=== PATIENT | female | born 1985 | race American Indian/Alaskan Native ===

== ENCOUNTER 2017-06-13 01:40 | Emergency (ER) | payer MEDICAID, OTHER ==
[2017-06-13 02:43] LABS: BUN/Creatinine Ratio 10; Basophils # (Auto) 0.1 K/mm3 (0.0-0.1); Basophils % (Auto) 0.3 % (0.0-1.8); Blood Urea Nitrogen 7 mg/dL (7-17); Calcium 8.7 mg/dL (8.4-10.2); Eosinophils % (Auto) 0.3 % (0.0-4.3); Hematocrit 40.9 % (30.3-42.9); Hemoglobin 13.9 gm/dl (10.1-14.3); Hemolysis Index 4; Lymphocytes # (Auto) 2.3 K/mm3 (1.2-5.4); Lymphocytes % (Auto) 13.5 % (13.4-35.0); Mean Corpuscular HGB Conc 34 % (30-34); Mean Corpuscular Hemoglobin 29 pg (28-32); Mean Corpuscular Volume 85 fl (79-97); Monocytes # (Auto) 0.6 K/mm3 (0.0-0.8); Monocytes % (Auto) 3.6 % (0.0-7.3); Platelet Count 285 K/mm3 (140-440); Red Cell Distribution Width 15.9 % (13.2-15.2)
[2017-06-13 02:48] LABS: Amphetamine Screen,Urine PRESUMPTIVE NEGATIVE; Benzodiazepines Screen,Urine PRESUMPTIVE NEGATIVE; Cocaine Screen,Urine PRESUMPTIVE NEGATIVE; Methadone Screen,Urine PRESUMPTIVE NEGATIVE; Opiate Screen,Urine PRESUMPTIVE NEGATIVE
[2017-06-13 03:06] LABS: Cannabinoid Screen,Urine PRESUMPTIVE POSITIVE
[2017-06-13] MEDS ORDERED: NACL 0.9% 1000 ML 1,000 ML IV ONE (04:01)
--- NOTE | 2017-06-13 05:00 | Emergency Department Report ---
ED Psych HPI - General Chief Complaint: Psych Stated Complaint: MH/SUICIDAL THOUGHTS Time Seen by Provider: 06/13/17 03:39 Source: patient, EMS Mode of arrival: Ambulatory Limitations: No Limitations - History of Present Illness Initial Comments: 32 year old female with a past medical history schizophrenia and depression presents to the hospital pending her suicidal ideation and depression. Patient having thoughts of cutting herself. She admits to alcohol intake tonight but denies daily alcohol use. She is calm and cooperative in ED without physical complaints. She is compliant with her Zyprexa but hears the voice of Krystian at times. - Related Data Home Medications Medication Instructions Recorded Confirmed Last Taken Mv-Mins/Folic Acid/Guarana/Caf 1 each PO DAILY 06/13/17 06/13/17 06/13/17 [One Daily Tablet] Allergies Allergy/AdvReac Type Severity Reaction Status Date / Time No Known Allergies Allergy Verified 06/13/17 01:56 ED Review of Systems ROS: Stated complaint: MH/SUICIDAL THOUGHTS Other details as noted in HPI Comment: All other systems reviewed and negative Other: Constitutional: No fevers chills or weight loss Eyes: No eye pain visual changes or discharge ENT: No ear pain or throat pain Neck: Denies pain Respiratory: Denies cough wheezing shortness of breath Cardiovascular: Denies chest pain, palpitations, syncope GI: Denies abdominal pain, nausea, vomiting, diarrhea : Denies dysuria Musculoskeletal: Denies back pain, joint swelling Skin: Denies rash, lesions, erythema Neurologic: Denies headache, numbness, weakness Psychiatric: As per HPI ED Past Medical Hx - Past Medical History Previous Medical History?: Yes Hx Psychiatric Treatment: Yes (Depression) - Surgical History Past Surgical History?: No - Social History Smoking Status: Current Every Day Smoker Substance Use Type: Alcohol - Medications Home Medications: Home Medications Medication Instructions Recorded Confirmed Last Taken Type Mv-Mins/Folic Acid/Guarana/Caf 1 each PO DAILY 06/13/17 06/13/17 06/13/17 History [One Daily Tablet] ED Physical Exam - General Limitations: No Limitations - Other Other exam information: General: No limitations, patient is alert in no acute distress Head exam: Atraumatic, normocephalic Eyes exam: Normal appearance, pupils equal reactive to light, extraocular movements intact ENT: Moist mucous membrane, normal oropharynx Neck exam: Normal inspection, full range of motion, no meningismus nontender Respiratory exam: Clear to auscultation bilateral, no wheezes, rales, crackles Cardiovascular: Normal rate and rhythm, normal heart sounds Abdomen: Soft, nondistended, and nontender, with normal bowel sounds, no rebound, or guarding Extremity: Full range of motion normal inspection no deformity Back: Normal Inspection, full range of motion, no tenderness Neurologic: Alert, oriented x3, cranial nerves intact, no motor or sensory deficit Psychiatric: normal affect, normal mood Skin: Warm, dry, intact ED Course Vital Signs 06/13/17 02:11 Temperature 98.7 F Pulse Rate 93 H Respiratory 18 Rate Blood Pressure 90/60 [Left] O2 Sat by Pulse 97 Oximetry ED Medical Decision Making - Lab Data Result diagrams: 06/13/17 02:12 06/13/17 02:12 Lab Results 06/13/17 06/13/17 06/13/17 Range/Units 02:11 02:12 02:12 WBC (4.5-11.0) K/mm3 RBC (3.65-5.03) M/mm3 Hgb (10.1-14.3) gm/dl Hct (30.3-42.9) % MCV (79-97) fl MCH (28-32) pg MCHC (30-34) % RDW (13.2-15.2) % Plt Count (140-440) K/mm3 Lymph % (Auto) (13.4-35.0) % [place] % (Auto) (0.0-7.3) % Eos % (Auto) (0.0-4.3) % Baso % (Auto) (0.0-1.8) % Lymph # (1.2-5.4) K/mm3 [place] # (0.0-0.8) K/mm3 Eos # (0.0-0.4) K/mm3 Baso # (0.0-0.1) K/mm3 Seg Neutrophils % (40.0-70.0) % Seg Neutrophils # (1.8-7.7) K/mm3 Sodium (137-145) mmol/L Potassium (3.6-5.0) mmol/L Chloride (98-107) mmol/L Carbon Dioxide (22-30) mmol/L Anion Gap mmol/L BUN (7-17) mg/dL Creatinine (0.7-1.2) mg/dL Estimated GFR ml/min BUN/Creatinine Ratio % Glucose (65-100) mg/dL Calcium (8.4-10.2) mg/dL Magnesium (1.7-2.3) mg/dL HCG, Qual (Negative) Salicylates < 0.3 L (2.8-20.0) mg/dL Urine Opiates Screen Presumptive negative Urine Methadone Screen Presumptive negative Acetaminophen < 5.0 L (10.0-30.0) ug/mL Ur Barbiturates Screen Presumptive negative Ur Phencyclidine Scrn Presumptive negative Ur Amphetamines Screen Presumptive negative U Benzodiazepines Scrn Presumptive negative Urine Cocaine Screen Presumptive negative U Marijuana (THC) Screen Presumptive positive Drugs of Abuse Note Disclamer Plasma/Serum Alcohol (0-0.07) % 06/13/17 06/13/17 06/13/17 Range/Units 02:12 02:12 02:12 WBC (4.5-11.0) K/mm3 RBC (3.65-5.03) M/mm3 Hgb (10.1-14.3) gm/dl Hct (30.3-42.9) % MCV (79-97) fl MCH (28-32) pg MCHC (30-34) % RDW (13.2-15.2) % Plt Count (140-440) K/mm3 Lymph % (Auto) (13.4-35.0) % [place] % (Auto) (0.0-7.3) % Eos % (Auto) (0.0-4.3) % Baso % (Auto) (0.0-1.8) % Lymph # (1.2-5.4) K/mm3 [place] # (0.0-0.8) K/mm3 Eos # (0.0-0.4) K/mm3 Baso # (0.0-0.1) K/mm3 Seg Neutrophils % (40.0-70.0) % Seg Neutrophils # (1.8-7.7) K/mm3 Sodium 141 (137-145) mmol/L Potassium 3.8 (3.6-5.0) mmol/L Chloride 103.3 (98-107) mmol/L Carbon Dioxide 23 (22-30) mmol/L Anion Gap 19 mmol/L BUN 7 (7-17) mg/dL Creatinine 0.7 (0.7-1.2) mg/dL Estimated GFR > 60 ml/min BUN/Creatinine Ratio 10 % Glucose 85 (65-100) mg/dL Calcium 8.7 (8.4-10.2) mg/dL Magnesium (1.7-2.3) mg/dL HCG, Qual Negative (Negative) Salicylates (2.8-20.0) mg/dL Urine Opiates Screen Urine Methadone Screen Acetaminophen (10.0-30.0) ug/mL Ur Barbiturates Screen Ur Phencyclidine Scrn Ur Amphetamines Screen U Benzodiazepines Scrn Urine Cocaine Screen U Marijuana (THC) Screen Drugs of Abuse Note Plasma/Serum Alcohol 0.12 H (0-0.07) % 06/13/17 06/13/17 Range/Units 02:12 02:12 WBC 17.3 H (4.5-11.0) K/mm3 RBC 4.80 (3.65-5.03) M/mm3 Hgb 13.9 (10.1-14.3) gm/dl Hct 40.9 (30.3-42.9) % MCV 85 (79-97) fl MCH 29 (28-32) pg MCHC 34 (30-34) % RDW 15.9 H (13.2-15.2) % Plt Count 285 (140-440) K/mm3 Lymph % (Auto) 13.5 (13.4-35.0) % [place] % (Auto) 3.6 (0.0-7.3) % Eos % (Auto) 0.3 (0.0-4.3) % Baso % (Auto) 0.3 (0.0-1.8) % Lymph # 2.3 (1.2-5.4) K/mm3 [place] # 0.6 (0.0-0.8) K/mm3 Eos # 0.0 (0.0-0.4) K/mm3 Baso # 0.1 (0.0-0.1) K/mm3 Seg Neutrophils % 82.3 H (40.0-70.0) % Seg Neutrophils # 14.2 H (1.8-7.7) K/mm3 Sodium (137-145) mmol/L Potassium (3.6-5.0) mmol/L Chloride (98-107) mmol/L Carbon Dioxide (22-30) mmol/L Anion Gap mmol/L BUN (7-17) mg/dL Creatinine (0.7-1.2) mg/dL Estimated GFR ml/min BUN/Creatinine Ratio % Glucose (65-100) mg/dL Calcium (8.4-10.2) mg/dL Magnesium 2.10 (1.7-2.3) mg/dL HCG, Qual (Negative) Salicylates (2.8-20.0) mg/dL Urine Opiates Screen Urine Methadone Screen Acetaminophen (10.0-30.0) ug/mL Ur Barbiturates Screen Ur Phencyclidine Scrn Ur Amphetamines Screen U Benzodiazepines Scrn Urine Cocaine Screen U Marijuana (THC) Screen Drugs of Abuse Note Plasma/Serum Alcohol (0-0.07) % - Medical Decision Making Patient has mild leukocytosis but denies infectious symptoms. Chest x-ray UA unremarkable. The patient is on the low side prolactinoma for patient. 1 L normal saline ordered and repeat pending. Patient is medically clear for psychiatric admission 1013 and transfer form have been signed - Differential Diagnosis suicidal, alcohol abuse Critical Care Time: No Critical care attestation.: If time is entered above; I have spent that time in minutes in the direct care of this critically ill patient, excluding procedure time. ED Disposition Clinical Impression: Suicidal ideation, Alcohol intoxication, Medical clearance for psychiatric admission Disposition: [id number]/TX-65 PSY HOSP/PSY UNIT Is pt being admited?: No Does the pt Need Aspirin: No Condition: Stable Time of Disposition: 06:15
[2017-06-13 05:32] LABS: Bacteria,Urine 1+ /HPF (Negative); Bilirubin,Urine NEG (Negative); Blood,Urine SM (Negative); Color,Urine Yellow (Yellow); Mucus,Urine FEW /HPF; Protein,Urine <15 mg/dL mg/dL (Negative)
--- NOTE | 2017-06-13 05:49 | XRay Report ---
FINAL REPORT EXAM: XR CHEST ROUTINE 2V HISTORY: elevated wbc TECHNIQUE: PA and lateral chest radiographs PRIORS: None. FINDINGS: No mediastinal shift. Cardiac silhouette is not enlarged. No pneumothorax, effusion, or focal pulmonary opacity. No acute skeletal finding. IMPRESSION: No focal pulmonary opacity.
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
[2017-06-13] MEDS ORDERED: ABILIFY PO ONE (23:45)
--- NOTE | 2017-06-14 15:38 | Progress Note ---
Subjective - Reason for Consult Consult date: 06/14/17 Reason for consult: Psychiatry Follow-up - Chief Complaint Chief complaint: "The prophets tells me lots of things" 32 year old female who presents to [facility] for suicidal ideation with plan to cut wrist. Today the patient is calm and cooperative during the assessment. She stated being in a "depressed state mind" for the past 5 yrs because of many stressors. She stated being a prophet and knowing prophets who can change her situation. She would not confirm or deny that she attempted suicide in the past when asked. She is adamant about wanting to be discharged. She denies SI/HI's and AVH's. She denies any side effects of her medication. Mental Status Exam - Vital signs Last Vital Signs Temp 98.8 F 06/13/17 19:45 Pulse 78 06/13/17 19:45 Resp 18 06/13/17 19:45 BP 112/60 06/13/17 19:45 Pulse Ox 100 06/13/17 19:45 - Exam Narrative exam: MSE: Appearance: calm, cooperative Behavior: regular eye contact, hyper scientology Speech: regular rate and tone Mood: "okay" Affect: congruent to mood Thought Process: circumstantial Thought Content: denies SI/HI's and AVH's, delusional Motor Activity: sitting up in bed Cognition: A/O x3 Insight: variable Judgment: variable Assessment and Plan Impression: Unspecified Mood DO with psy features. Alcohol intoxication on admission. Cannabis Use DO. Today the patient is calm and cooperative during the assessment. DDx: R/O Bipolar DO, R/O Substance Induced Mood/Psy DO Recommendation/Plan: Continue 1013 and gather collateral information to help determine proper dispo. Continue Abilify 5 mg PO HS for mood/psychosis. Discussed possible metabolic side effects of Abilify with patient. Discussed generalized coping skills with patient.
[2017-06-14] MEDS ORDERED: GEODON PO ONE ×2 (17:30→20:25)
[2017-06-14] MEDS ORDERED: ABILIFY PO SCH (22:00)
[2017-06-15 13:53] VITALS: BP 92/56
--- NOTE | 2017-06-15 18:00 | Progress Note ---
Subjective - Reason for Consult Consult date: 06/22/17 Reason for consult: psychiatric follow-up - Chief Complaint Chief complaint: "The prophets tells me lots of things" 32 year old female who presents to [facility] for suicidal ideation with plan to cut wrist. Yesterday evening she was agitated about her continued stay in the ED needing Geodon PRN. Today the patient was calm and cooperative during the assessment. She continued to appear in a depressed state, however she continued to minimize her symptoms and was perseverative about being discharged home. She was minimizing the stressors in her life and also minimizing her alcohol use. Denied any homicidal ideations and denied any auditory or visual hallucinations. She denies any side effects of her medication. Mental Status Exam - Vital signs Last Vital Signs Temp 98.5 F 06/15/17 10:00 Pulse 88 06/15/17 10:00 Resp 18 06/15/17 10:00 BP 92/56 06/15/17 10:00 Pulse Ox 100 06/15/17 10:00 - Exam Narrative exam: Narrative exam: MSE: Appearance: calm, cooperative Behavior: regular eye contact, Speech: regular rate and tone Mood: Depressed and irritable Affect: congruent to mood Thought Process: circumstantial Thought Content: denies SI/HI's and AVH's, Motor Activity: sitting up in bed Cognition: A/O x3 Insight: Poor Judgment: Poor Assessment and Plan Impression: Unspecified Mood DO with psy features. Alcohol intoxication on admission. Cannabis Use DO. Today the patient is calm and cooperative during the assessment. Recommendation/Plan: Patient has been accepted at [facility] and will be transferred to that facility for continued psychiatric care. Continue her Abilify 5 mg at bedtime to help with mood and psychosis.
== END 2017-06-15 18:04 ==
LOC: ED 01:40
DX: F32.9 Major depressive disorder, single episode, unspecified (principal); F10.129 Alcohol abuse with intoxication, unspecified; F17.200 Nicotine dependence, unspecified, uncomplicated
CPT/HCPCS: 36415; 71046; 80048; 80307; 81001; 83735; 84703; 85025; 96360; 99285; G0480; J7030; 80320

== ENCOUNTER 2020-07-12 21:45 | Emergency (ER) | payer SELFPAY | END 2020-07-12 23:15 | disposition left against medical advice (07) | LOC: ED 21:45 | DX: Z53.21 Procedure and treatment not carried out due to patient leaving prior to being seen by health care provider (principal) ==

== ENCOUNTER 2020-07-15 09:21 | Observation (INO) | payer OTHER ==
--- NOTE | 2020-07-15 09:35 | Event Note ---
ED Screening Note ED Screening Note: vag bleed 4 w preg This initial assessment/diagnostic orders/clinical plan/treatment(s) is/are subject to change based on patients health status, clinical progression and re- assessment by fellow clinical providers in the ED. Further treatment and workup at subsequent clinical providers discretion. Patient/guardian urged not to elope from the ED as their condition may be serious if not clinically assessed and managed. Initial orders include: ro ectopic/ab
[2020-07-15 10:23] LABS: Basophils % (Auto) 0.2 % (0.0-1.8); Eosinophils % (Auto) 0.3 % (0.0-4.3); Hematocrit 21.5 % (30.3-42.9); Hemoglobin 7.7 gm/dl (10.1-14.3); Lymphocytes # (Auto) 2.3 K/mm3 (1.2-5.4); Lymphocytes % (Auto) 13.5 % (13.4-35.0); Mean Corpuscular HGB Conc 36 % (30-34); Mean Corpuscular Volume 91 fl (79-97); Monocytes % (Auto) 5.9 % (0.0-7.3); Platelet Count 229 K/mm3 (140-440); Red Blood Count 2.36 M/mm3 (3.65-5.03); Red Cell Distribution Width 14.1 % (13.2-15.2)
--- NOTE | 2020-07-15 10:51 | Emergency Department Report ---
ED Female HPI - General Chief complaint: Vaginal Bleeding Stated complaint: ABD PAIN/POSSIBLE MISCARRIAGE Time Seen by Provider: 07/15/20 09:34 Source: patient Mode of arrival: Ambulatory Limitations: No Limitations - History of Present Illness Initial comments: 35 YO AA FEMALE COMES TO ER P WAKING UP HAVING VAG SPOTTING DURING THE NIGHT. MILD CRAMPING. THIS IS 9TH . LMP THE FIRST WEEK OF MAY - SHE STATES. OB IS DR ERAZO AT THE [facility] BUT SHE HAS NOT SEEN HIM THIS ON NO HOME MEDS. MD Complaint: vaginal bleeding -: Sudden, hour(s) Severity: mild Quality: cramping Consistency: intermittent Improves with: none Worsens with: none Are you Now?: Yes Associated Symptoms: denies other symptoms, vaginal bleeding, abdominal pain. denies: vaginal discharge, nausea/vomiting, fever/chills, headaches, loss of appetite, dysuria, hematuria, rash, seizure, shortness of breath, syncope, weakness - Related Data Sexually active: Yes : 9 Para: 7 A: 1 Allergies Allergy/AdvReac Type Severity Reaction Status Date / Time No Known Allergies Allergy Verified 06/13/17 01:56 ED Review of Systems ROS: Stated complaint: ABD PAIN/POSSIBLE MISCARRIAGE Other details as noted in HPI Comment: All other systems reviewed and negative ED Past Medical Hx - Past Medical History Previous Medical History?: Yes Hx Psychiatric Treatment: Yes (Depression) - Surgical History Past Surgical History?: Yes - Family History Family history: no significant - Social History Smoking Status: Current Every Day Smoker Substance Use Type: None ED Physical Exam - General Limitations: No Limitations General appearance: alert, in no apparent distress - Head Head exam: Present: atraumatic, normocephalic - Eye Eye exam: Present: normal appearance - ENT ENT exam: Present: mucous membranes moist - Neck Neck exam: Present: normal inspection - Respiratory Respiratory exam: Present: normal lung sounds bilaterally. Absent: respiratory distress - Cardiovascular Cardiovascular Exam: Present: regular rate, normal rhythm. Absent: systolic murmur, diastolic murmur, rubs, gallop - GI/Abdominal GI/Abdominal exam: Present: soft, tenderness, normal bowel sounds - Extremities Exam Extremities exam: Present: normal inspection - Back Exam Back exam: Present: normal inspection - Neurological Exam Neurological exam: Present: alert, oriented X3 - Psychiatric Psychiatric exam: Present: normal affect, normal mood - Skin Skin exam: Present: warm, dry, intact, normal color. Absent: rash ED Course Vital Signs 07/15/20 07/15/20 07/15/20 09:31 13:13 13:16 Temperature 98.0 F 98.6 F Pulse Rate 104 H 86 Respiratory 16 18 16 Rate Blood Pressure 99/53 Blood Pressure 101/46 [Right] O2 Sat by Pulse 99 100 100 Oximetry - Reevaluation(s) Reevaluation #1: 07/15/20 13:07 dispo per obgyn Reevaluation #2: 07/15/20 13:26 to OR per obgyn ED Medical Decision Making - Lab Data Result diagrams: 07/15/20 09:52 - Radiology Data Radiology results: report reviewed, image reviewed SEE IMAGES - Medical Decision Making Labs 07/15/20 07/15/20 07/15/20 09:52 09:52 09:52 WBC 17.1 H RBC 2.36 L Hgb 7.7 L Hct 21.5 L MCV 91 MCH 33 H MCHC 36 H RDW 14.1 Plt Count 229 Lymph % (Auto) 13.5 Adams % (Auto) 5.9 Eos % (Auto) 0.3 Baso % (Auto) 0.2 Lymph # (Auto) 2.3 Adams # (Auto) 1.0 H Eos # (Auto) 0.0 Baso # (Auto) 0.0 Seg Neutrophils % 80.1 H Seg Neutrophils # 13.7 H HCG, Quant 33985 H Blood Type B POSITIVE Ord Rhogam Gestat Weeks Rh pos Vital Signs 07/15/20 09:31 Temperature 98.0 F Pulse Rate 104 H Respiratory 16 Rate Blood Pressure 99/53 O2 Sat by Pulse 99 Oximetry LABS NOTED RH POS US DISCUSSED WITH DR FAROOQ PT NPO PT AWARE OF FINDINGS OBGYN PAGED [phone] UA OBTAINED AND SET TO LAB NS/ROCEPHIN IV GIVEN DILAUDID FOR PAIN PRN 1300 obgyn has seen pt. dispo per obgyn/specialist - Differential Diagnosis RO AB/RO ECTOPIC/ RO UTI Critical care attestation.: If time is entered above; I have spent that time in minutes in the direct care of this critically ill patient, excluding procedure time. ED Disposition Clinical Impression: Ectopic Disposition: OP ADMIT IP TO THIS HOSP Is pt being admited?: Yes Does the pt Need Aspirin: No Condition: Stable Referrals: PRIMARY CARE, [Primary Care Provider] - 3-5 Days Time of Disposition: 13:08
[2020-07-15] MEDS ORDERED: cefTRIAXone/NS 1 GM/50 ML 1 GM/50 ML BAG IV ONE (11:19)
[2020-07-15] MEDS ORDERED: SODIUM CHLORIDE 0.9% 1000 ML 1,000 ML IV ONE (11:19)
[2020-07-15] MEDS ORDERED: HYDROmorphone 1 MG/1 ML INJ IV PRN ×2 (12:16→14:08)
--- NOTE | 2020-07-15 12:30 | Ultrasound Report ---
ULTRASOUND OBSTETRIC INDICATION: with vaginal bleeding. TECHNIQUE: Transabdominal. COMPARISON: None available. FINDINGS: GESTATIONAL SAC: A well-defined gestational sac is seen along the right adnexal region. YOLK SAC: No significant abnormality. EMBRYO/FETUS: Present without visualization of cardiac activity. - [place]-Rump Length = 0.7 cm = 6 weeks, 4 day(s). ADNEXA: As above. No significant abnormality of the ovaries. FREE FLUID: A moderate amount of free fluid is seen along the pelvis and in the right upper quadrant. ADDITIONAL FINDINGS: None. IMPRESSION: Ectopic right adnexal without identification of cardiac activity and with evidence of rupture with a moderate amount of free fluid present. CRITICAL RESULT: Time of Discovery (COLORED LEATHER SETTER/CDT): 11:05 Time of Communication (COLORED LEATHER SETTER/CDT): 11:09 Licensed Practitioner Receiving Report: Kayla Llamas Read-Back Performed: Yes. Signer Name: Hakan Martinez MD Signed: 07/15/2020 12:11 PM Workstation Name: [id number]
[2020-07-15 12:34] LABS: Bilirubin,Urine NEG (Negative); Blood,Urine LG (Negative); Color,Urine Yellow (Yellow); Mucus,Urine FEW /HPF; Urobilinogen,Urine < 2.0 mg/dL (<2.0)
[2020-07-15] MEDS ORDERED: HYDROmorphone 1 MG/1 ML INJ ONE (13:28)
[2020-07-15] MEDS ORDERED: propofoL 200 MG/20 ML VIAL IV ONE (13:28)
--- NOTE | 2020-07-15 13:28 | History and Physical Report ---
History of Present Illness Date of examination: 07/15/20 Chief complaint: Ectopic History of present illness: This is a 35 yof who presents with pelvic pain and bleeding that started 07/12/20. She had a +UPT ~2weeks ago but has not recv'd care. Her evaluation today reveals ectopic with ? blood in pelvis. Past History Past Medical History: no pertinent history Past Surgical History: no surgical history [employer] History: chlamydia, gonorrhea, trichomonas. denies: abnormal PAP smear, hepatitis B, hepatitis C, HIV, syphilis - Obstetrical History : 9 Para: 7 Spontaneous Abortions: 1 Medications and Allergies Allergies Allergy/AdvReac Type Severity Reaction Status Date / Time No Known Allergies Allergy Verified 06/13/17 01:56 Active Meds: Active Medications Hydromorphone HCl (Hydromorphone 1 Mg/1 Ml Inj) 0.25 mg IV Q4H PRN PRN Reason: Pain, Moderate (4-6) Cefazolin Sodium (Ancef/Sterile Water 2 Gm/20 Ml) 2 gm in 20 mls @ 80 mls/hr IV PREOP NR; Protocol Review of Systems All systems: negative Gastrointestinal: abdominal pain Genitourinary: pelvic pain - Vital Signs Vital signs: Vital Signs Temp Pulse Resp BP Pulse Ox 98.0 F 104 H 16 99/53 99 07/15/20 09:31 07/15/20 09:31 07/15/20 09:31 07/15/20 09:31 07/15/20 09:31 Temp Pulse Resp BP Pulse Ox 98.6 F 86 16 101/46 100 07/15/20 13:16 07/15/20 13:16 07/15/20 13:16 07/15/20 13:16 07/15/20 13:16 - Physical Exam Breasts: Positive: deferred Abdomen: Positive: tenderness (RLQ) Results Result Diagrams: 07/15/20 09:52 Abnormal lab results 07/15/20 07/15/20 Range/Units 09:52 09:52 WBC 17.1 H (4.5-11.0) K/mm3 RBC 2.36 L (3.65-5.03) M/mm3 Hgb 7.7 L (10.1-14.3) gm/dl Hct 21.5 L (30.3-42.9) % MCH 33 H (28-32) pg MCHC 36 H (30-34) % Haywood # (Auto) 1.0 H (0.0-0.8) K/mm3 Seg Neutrophils % 80.1 H (40.0-70.0) % Seg Neutrophils # 13.7 H (1.8-7.7) K/mm3 HCG, Quant 52490 H (0-4) mIU/mL All other labs normal. Ultrasound: report reviewed, image reviewed Assessment and Plan - Patient Problems (1) Ectopic Current Visit: Yes Status: Acute Qualifiers: Location of ectopic : tubal Plan to address problem: Findings and presumptive diagnosis explained. Options reviewed: observation vs surgical intervention with removal of fallopian tube w/ or w/o D&C. Recommend proceeding with surgical intervention at this time d/t significant risk of poor outcome and with observation. Risk with surgery explained, including but not limited to, bleeding, infection, injury to bowel, bladder, ureters and any surrounding organs. She is not a candidate for medical therapy d/t findings on US suggestive of moderate blood in the pelvis. She voiced understanding, she desires to proceed with surgical intervention. Consents were reviewed and signed.
[2020-07-15] MEDS ORDERED: ROCURONIUM 50 MG/5 ML INJ IV ONE (13:30)
[2020-07-15] MEDS ORDERED: SUCCINYLCHOLINE CHLORIDE 200 MG/10 ML INJ MDV ONE (13:30)
[2020-07-15] MEDS ORDERED: LIDOCAINE MPF (2%) 20 MG/1 ML VIAL 5 ML ONE (13:31)
[2020-07-15] MEDS ORDERED: BUPIVACAINE/PF (0.5%) 5 MG/1 ML 30 ML VIAL INFILTRATI ONE ×2 (13:41→14:42)
[2020-07-15] MEDS ORDERED: MIDAZOLAM 2 MG/2 ML INJ ONE (13:46)
[2020-07-15] MEDS ORDERED: ceFAZolin/Water 2 GM/20 ML 2 GM/20 ML SYRINGE IV NR (14:00)
[2020-07-15] MEDS ORDERED: ONDANSETRON 4 MG/2 ML INJ IV PRN ×2 (14:08→16:00)
--- NOTE | 2020-07-15 14:10 | Anesthesia Consultation ---
Anesthesia Consult and Med Hx Date of service: 07/15/20 - Airway Anesthetic Teeth Evaluation: Poor (no loose teeth but patient reports prior hx tooth decay) ROM Head & Neck: Adequate Mental/Hyoid Distance: Adequate Mallampati Class: Class II Intubation Access Assessment: Probably Good - Pulmonary Exam CTA: Yes - Cardiac Exam Cardiac Exam: RRR - Pre-Operative Health Status ASA Pre-Surgery Classification: ASA2, Emergency Proposed Anesthetic Plan: General - Pulmonary Hx Smoking: Yes (1/4PPD) Hx Respiratory Symptoms: No - Cardiovascular System Hx Hypertension: No - Central Nervous System CVA: No - Endocrine Hx Renal Disease: No Hx Liver Disease: No Hx Insulin Dependent Diabetes: No Hx Non-Insulin Dependent Diabetes: No Hx Thyroid Disease: No - Hematic Hx Anemia: Yes - Other Systems Hx Substance Use: Yes (THC) Hx Obesity: No - Additional Comments Anesthesia Medical History Comments: No prior anesthetics. No FHx anesthetic complications. Scheduled for laparoscopy for extopic . HD stable, starting Hb 7.7; pRBCs ordered on stand by. Plan GETA, standard ASA monitors.
--- NOTE | 2020-07-15 14:10 | Anesthesia Day of Surgery ---
Anesthesia Day of Surgery - Day of Surgery Patient Examined: Yes Patient H&P Reviewed: Yes Patient is NPO: Yes
[2020-07-15] MEDS ORDERED: NEOSTIGMINE 10MG/10 ML INJ MDV ONE (14:47)
[2020-07-15] MEDS ORDERED: PHENYLEPHRINE/NS 1,000 MCG/10 ML SYRINGE (OR USE) IV ONE (14:47)
[2020-07-15] MEDS ORDERED: SODIUM CHLORIDE 0.9% IRR 1,500 ML BOTTLE IR ONE (14:48)
[2020-07-15] MEDS ORDERED: ONDANSETRON 4 MG/2 ML INJ ONE (14:48)
[2020-07-15] MEDS ORDERED: GLYCOPYRROLATE 0.4 MG/2 ML INJ ONE (14:48)
[2020-07-15] MEDS ORDERED: SODIUM CHLORIDE 0.9% 1000 ML 1,000 ML ONE (14:48)
[2020-07-15] MEDS ORDERED: KETOROLAC 30 MG/1 ML INJ ONE (14:48)
[2020-07-15] MEDS ORDERED: SODIUM CHLORIDE 0.9% 500 ML 500 ML ONE (15:24)
--- NOTE | 2020-07-15 15:38 | Operative Report ---
Operative Report Operative Report: Date of operation: 07/14/2020 Pre-operative diagnosis: 1. Ectopic tubal Post-operative diagnosis: 1. Ectopic right tubal Procedure name(s): 1. Laparoscopic right salpingectomy Surgeon: Roxi Razo MD Clay Miller: [] Anesthesia: General endotracheal anesthesia Anesthesiologist: Dr. Liz Coffman EBL: 1200 mL in the abdomen and pelvis at the beginning of the procedure with active bleeding noted from the right ruptured fallopian tube. Urine output: 150 mL of clear yellow urine Findings: Grossly normal uterus left fallopian tube and bilateral ovaries. Ruptured right fallopian tube. Procedure: After risks, benefits, complications, consequences and alternatives for this procedure were discussed with patient and she voiced understanding desire to proceed, the patient was taken to the operating suite and placed in the supine position. General anesthesia was induced. She placed in dorsolithotomy position and prepped and draped in the usual sterile fashion. Timeout was performed. Trinidad catheter was introduced into the bladder with drainage of clear yellow urine. An operative speculum was introduced into the vagina, and the anterior lip of the cervix was grasped with an Allis clamp. The uterus was sounded to 8 cm. The cervix was progressively dilated to allow the Sargis uterine manipulator to be placed without difficulty. The speculum and clamp were removed. Sterile gloves were placed and attention was turned to the abdomen. An supraumbilical incision was made and a 5 mm bladeless Optiview trocar was placed with laparoscope and camera inserted. No obvious bowel, bladder, ureteral or major vascular injury was noted. The abdomen was insufflated. The above findings were noted. She was then placed in Trendelenburg position. Then an incision was made approximately 2 cm superior to the symphysis pubis in the midline. An 10 mm bladeless trocar was introduced under the direct visualization. Again no obvious bowel, bladder, ureteral or major vascular injury was noted. An additional 5 mm trocar was placed in the midclavicular lower abdominal region through an incision under direct visualization. The uterus was elevated, and using the 10 mm Nezhat device the blood was aspirated. A large clot was noted to be adhered to the right tube that was removed. The ruptured right fallopian tube with ectopic was visualized. Using a 5 mm curved [place] LigaSure tube was grasped and elevated, cauterized and incised. The remainder of the mesosalpinx of the tube was grasped clamped and cauterized in a serial fashion. Once the tube was completely excised it was placed in the anterior cul-de-sac. The pelvis was copiously irrigated with warm normal saline. Attention was turned to the right adnexa where hemostasis was noted. The pelvis was again irrigated with normal saline as mentioned hemostasis was noted. The patient is taken out of Trendelenburg and the remaining of the blood and fluid was aspirated. The Endo Catch bag was then inserted through the 10 mm trocar and the tube with ectopic was introduced into the bag and removed through the suprapubic incision. Attention was turned back to the adnexa when hemostasis was noted. The CO2 was released under direct visualization to ensure hemostasis. Hemostasis was noted. At which point the procedure was ended. The 10 mm trochar removed under direct visualization hemostasis was noted. Then the right lateral 5 mm trocar was removed hemostasis was noted. The 5 mm supraumbilical trocar was removed. The incisions were infused with half percent Marcaine without epinephrine. The incisions were reapproximated using 4-0 Vicryl in a subcuticular manner. Hemostasis was noted. Attention was turned to the vagina where the Sargis uterine manipulator was removed. Hemostasis was noted. Patient was taken to recovery room in stable condition.
--- NOTE | 2020-07-15 15:39 | Event Note ---
Date: 07/15/20 Operative findings and procedure discussed with patient in PACU. Due to the the amount of blood in her abdomen we will proceed with transfusion of 2 units packed red blood cells and admit overnight for observation. Patient informed of plan of care she voiced understanding and agrees.
[2020-07-15 15:48] LABS: Hemoglobin 6.3 gm/dl (10.1-14.3)
[2020-07-15 15:55] LABS: Hematocrit 18.2 % (30.3-42.9)
[2020-07-15] MEDS ORDERED: ONDANSETRON 4 MG ODT TAB PO PRN (16:00)
[2020-07-15] MEDS ORDERED: METOCLOPRAMIDE 10 MG/2 ML INJ IV PRN (16:00)
[2020-07-15] MEDS ORDERED: ACETAMINOPHEN 325 MG TAB PO PRN (16:00)
[2020-07-15] MEDS ORDERED: KETOROLAC 30 MG/1 ML INJ IV PRN (16:00)
--- NOTE | 2020-07-15 18:41 | Post Anesthesia Evaluation ---
- Post Anesthesia Evaluation Patient Participated: Yes Airway Patent: Yes Stable Respiratory Function: Yes Nausea/Vomiting: No Temp > 96.8F: Yes Pain Manageable: Yes Adequeate Hydration: Yes Anesthesia Complications: No Block Receding Appropriately: Not Applicable Other Comments: Asymptomatic hypotension on arrival to PACU which improved after transfusion of 2 units pRBCs. OK for transfer to floor. Post-transfusion H/H ordered.
--- NOTE | 2020-07-15 20:29 | Discharge Summary ---
Providers - Providers Date of Admission: 07/15/20 16:00 Date of discharge: 07/15/20 Attending physician: GEOVANNA BOTELLO Primary care physician: REJOINER Hospitalization Condition: Good Procedures: Laparoscopic (L) salpingectomy Hospital course: See history and physical. Patient underwent left salpingectomy without any complications. Postoperative course was unremarkable. Disposition: DC- TO HOME OR SELFCARE Final Discharge Diagnosis (Prints w/discharge instructions): Laparoscopic left salpingectomy for ectopic - Discharge Diagnoses (1) Ectopic Status: Acute Qualifiers: Location of ectopic : tubal Core Measure Documentation - Palliative Care Palliative Care/ Comfort Measures: Not Applicable - Core Measures Any of the following diagnoses?: none Exam - Constitutional Vitals: Temp Pulse Resp BP Pulse Ox 97.7 F 85 15 103/40 97 07/15/20 17:38 07/15/20 17:38 07/15/20 17:38 07/15/20 17:38 07/15/20 17:38 General appearance: Present: no acute distress - Respiratory Respiratory effort: normal - Psychiatric Psychiatric: appropriate mood/affect, intact judgment & insight, memory intact, cooperative Plan Activity: other (No sex. No driving for 48 hours. Ambulate on your property frequently. Void frequently.) Weight Bearing Status: Full Weight Bearing Diet: regular (Avoid spicy, high-fat, high salt foods. Drink approximately 64 ounces of water a day.) Wound: open to air, keep clean and dry Special Instructions: no heavy lifting (Greater than 15 pound) Follow up with: PRIMARY MD DAVID [Primary Care Provider] - 3-5 Days GEOVANNA BOTELLO MD [Staff Physician] - 7 Days Prescriptions: Ibuprofen [Motrin 800 MG tab] 800 mg PO TID PRN #30 tablet PRN Reason: Pain oxyCODONE /ACETAMINOPHEN [Percocet 5/325 mg] 1 - 2 tab PO Q6HR PRN #7 tablet PRN Reason: Pain
[2020-07-15 21:04] LABS: Hematocrit 27.5 % (30.3-42.9); Hemoglobin 9.6 gm/dl (10.1-14.3)
[2020-07-16] MEDS: oxyCODONE /ACETAMINOPHEN 5-325MG TAB PO PRN ×2 (01:51→13:07)
[2020-07-16] MEDS: IBUPROFEN 800 MG TAB PO SCH ×3 (05:37→13:06)
[2020-07-16 09:13] VITALS: BP 102/50
--- NOTE | 2020-07-16 15:02 | Discharge Summary ---
Providers - Providers Date of Admission: 07/15/20 16:00 Date of discharge: 07/16/20 Attending physician: GEOVANNA BOTELLO Primary care physician: COIL WINDER REPAIR Hospitalization Condition: Good Procedures: Laparoscopic Right salpingectomy for ectopic Hospital course: She was evaluated for abdominal pain and was noted to have tubal ectopic . She had severe anemia and low BP's. She was taken to the OR immediately for laparoscopic evaluation and was found to have a right tubal . She underwent a laparoscopy right salpingectomy. She had ~1200mL bld in the abdomen. In PACU BP's were slightly lower therefore she received 2uPRBC's and was admitted for observation. Postop course has been unremarkable, she's allow home at this time Disposition: DC- TO HOME OR SELFCARE Final Discharge Diagnosis (Prints w/discharge instructions): s/p laparoscopic right salpingectomy - Discharge Diagnoses (1) Ectopic Status: Acute Qualifiers: Location of ectopic : tubal Core Measure Documentation - Palliative Care Palliative Care/ Comfort Measures: Not Applicable - Core Measures Any of the following diagnoses?: none Exam - Constitutional Vitals: Temp Pulse Resp BP Pulse Ox 97.8 F 83 18 102/50 97 07/16/20 08:33 07/16/20 08:33 07/16/20 08:33 07/16/20 08:33 07/16/20 08:33 Plan Activity: other (no sex, No driving x48 ours, ambulate ~1mile on your property a day. Void frequently) Weight Bearing Status: Full Weight Bearing Diet: regular Wound: open to air, keep clean and dry Special Instructions: no heavy lifting (Greater than 15Lbs) Follow up with: GEOVANNA BOTELLO MD [Staff Physician] - 7 Days PRIMARY CAREMD [Primary Care Provider] - 3-5 Days Prescriptions: Ibuprofen [Motrin 800 MG tab] 800 mg PO TID PRN #30 tablet PRN Reason: Pain oxyCODONE /ACETAMINOPHEN [Percocet 5/325 mg] 1 - 2 tab PO Q6HR PRN #7 tablet PRN Reason: Pain
== END 2020-07-16 16:52 | disposition home or self-care (01) ==
LOC: ED 09:21 → OB 16:00
PROVIDERS: ADMIT Obstetrics & Gynecology; ATTEND Obstetrics & Gynecology
DX: O00.101 Right tubal pregnancy without intrauterine pregnancy (principal); Z20.822 Contact with and (suspected) exposure to COVID-19; O99.341 Other mental disorders complicating pregnancy, first trimester; F32.9 Major depressive disorder, single episode, unspecified; O99.331 Smoking (tobacco) complicating pregnancy, first trimester; F17.210 Nicotine dependence, cigarettes, uncomplicated; Z90.79 Acquired absence of other genital organ(s); Z86.19 Personal history of other infectious and parasitic diseases; Z3A.01 Less than 8 weeks gestation of pregnancy
CPT/HCPCS: 36415; 36430; 59151; 76801; 81001; 84702; 85014; 85018; 85025; 86850; 86900; 86901; 86920; 88305; 96365; 96375; 99284; G0378; J0330; J0696; J1170; J1885; J2250; J2370; J2405; J2704; J2710; J7030; J7040; P9016; U0003

== ENCOUNTER 2021-01-07 05:46 | Emergency (ER) | payer SELFPAY ==
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
[2021-01-07 08:14] LABS: Amphetamine Screen,Urine Negative; Benzodiazepines Screen,Urine Negative; Cocaine Screen,Urine Negative; Methadone Screen,Urine Negative; Opiate Screen,Urine Negative
[2021-01-07 08:16] LABS: Basophils % (Auto) 0.3 % (0.0-1.8); Eosinophils % (Auto) 0.1 % (0.0-4.3); Lymphocytes # (Auto) 2.2 K/mm3 (1.2-5.4); Lymphocytes % (Auto) 14.4 % (13.4-35.0); Mean Corpuscular HGB Conc 36 % (30-34); Mean Corpuscular Volume 83 fl (79-97); Monocytes # (Auto) 0.9 K/mm3 (0.0-0.8); Monocytes % (Auto) 5.9 % (0.0-7.3); Platelet Count 339 K/mm3 (140-440); Red Blood Count 5.19 M/mm3 (3.65-5.03)
[2021-01-07 08:21] LABS: Bilirubin,Urine SM (Negative); Blood,Urine NEG (Negative); Color,Urine Amber (Yellow); Mucus,Urine FEW /HPF
[2021-01-07 08:27] LABS: Cannabinoid Screen,Urine Positive
[2021-01-07 08:36] LABS: Hemoglobin 15.6 gm/dl (10.1-14.3); Red Cell Distribution Width 23.2 % (13.2-15.2)
[2021-01-07 08:38] LABS: Blood Urea Nitrogen 5 mg/dL (7-17); Calcium 9.7 mg/dL (8.4-10.2); Hemolysis Index 7
[2021-01-07 08:42] LABS: BUN/Creatinine Ratio 7
[2021-01-07 08:49] LABS: Ictotest,Urine Negative (Negative)
--- NOTE | 2021-01-07 09:32 | Electrocardiograph Report ---
[facility] Test Date: 2021-01-07 Test Time: 06:25:31 Pat Name: IRIS HORNE Department: Room: Gender: F [employer] Carpenter: as : 1985 Requested By: JENNIFER MACIEL Order Number: [id number] Reading MD: Todd Corona Measurements Intervals [place] Rate: 95 P: 73 [place]: 131 QRS: 91 QRSD: 77 T: 59 QT: 363 QTc: 457 Interpretive Statements Sinus rhythm Probable left atrial enlargement No previous ECG available for comparison Electronically Signed On 01-07-2021 9:31:36 EDT by Todd Corona
--- NOTE | 2021-01-07 11:21 | Consultation ---
History of Present Illness - Reason for Consult Consult date: 01/07/21 Reason for consult: SI - History of Present Psychiatric Illness Rose Mary Sanchez is a 35y/o female patient who states she was having chest pain. She then says she told them she was having suicidal thoughts. The patient says "I start feeling like this when I get stressed." She says she "took some pills the other day." She says she was diagnoses with depression and PTSD. The patient is crying a little. She says she hasn't seen a psychiatrist or been on meds in about 4 years. She denies hallucinations. The patient tells me that she doesn't think she should be placed in an inpatient facility. She says "it's all just due to stress." She denies any illicit drug use, alcohol or nicotine. PAST PSYCHIATRIC HISTORY: Diagnoses: depression, PTAD Suicide attempts or Self-harm behavior: Yes Prior psychiatric hospitalizations: Denies Substance Abuse history: Denies Previous psychiatric medications tried: Denies Outpatient treatment: Denies PAST MEDICAL HISTORY: None reported Family Psychiatric History: None reported or documented SOCIAL HISTORY Marital Status: Single Living Arrangements: with someone Employment Status: unemployed Access to guns/weapons: Denies Education: History of Abuse: Denies Legal History: Denies REVIEW OF SYSTEMS Constitutional: Negative for weight loss ENT: Negative for stridor Respiratory: Negative for cough or hemoptysis All other systems reviewed and are negative MENTAL STATUS EXAMINATION General Appearance and Behavior: Age appropriate, good hygiene, wearing appropriate clothes, cooperative polite with questioning. Cooperation: cooperative Psychomotor Behavior: Psychomotor agitation Mood: depressed Affect and affective range: Congruent with stated mood, tearful Thought Process: goal directed Thought Content: SI, depression Speech: normal tone and pace Suicidal Ideation: Yes Homicidal Ideation: Denied hallucination: Denies Delusions: None elicited Impulse Control: Normal Insight and Judgment: Limited Memory: Limited Attention: attentive Orientation: Alert and oriented Diagnoses: Major Depressive Disorder Current Visit: Yes Status: Acute RECOMMENDATIONS 1013 Zoloft 25mg po daily Vistaril 25mg po BID Trazodone 50mg po qhs Risks, benefits and alternatives of medications discussed with the patient, questions answered and consent obtained from patient. PSYCHOTHERAPY: Supportive psychotherapy provided MEDICAL: Per primary team DELIRIUM PRECAUTIONS: Please re-orient patient frequently, keep lights on during the day, and minimize benzodiazepines and opiates as these medications could worsen patient's confusion. 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 Please contact with any questions and/or concerns. Case staffed with Dr. Escamilla Medications and Allergies Allergies Allergy/AdvReac Type Severity Reaction Status Date / Time No Known Allergies Allergy Verified 06/13/17 01:56 Home Medications Medication Instructions Recorded Confirmed Last Taken Type Ibuprofen [Motrin 800 MG tab] 800 mg PO TID PRN #30 tablet 07/15/20 Unknown Rx oxyCODONE /ACETAMINOPHEN [Percocet 1 - 2 tab PO Q6HR PRN #7 tablet 07/15/20 Unknown Rx 5/325 mg] Mental Status Exam - Vital signs Last Vital Signs Temp 98.1 F 01/07/21 06:11 Pulse 96 H 01/07/21 06:11 Resp 20 01/07/21 06:11 BP 96/61 01/07/21 06:11 Pulse Ox 100 01/07/21 08:10 Results Result Diagrams: 01/07/21 07:34 01/07/21 07:34 Abnormal lab results 01/07/21 01/07/21 01/07/21 Range/Units 07:34 07:34 07:34 WBC 15.1 H (4.5-11.0) K/mm3 RBC 5.19 H (3.65-5.03) M/mm3 Hgb 15.6 H (10.1-14.3) gm/dl Hct 43.0 H (30.3-42.9) % MCHC 36 H (30-34) % RDW 23.2 H (13.2-15.2) % [place] # (Auto) 0.9 H (0.0-0.8) K/mm3 Seg Neutrophils % 79.3 H (40.0-70.0) % Seg Neutrophils # 12.0 H (1.8-7.7) K/mm3 D-Dimer (0-234) ng/mlDDU Carbon Dioxide 18 L (22-30) mmol/L BUN 5 L (7-17) mg/dL HCG, Quant (0-4) mIU/mL Urine WBC (Auto) (0.0-6.0) /HPF Salicylates < 0.3 L (2.8-20.0) mg/dL Acetaminophen (10.0-30.0) ug/mL 01/07/21 01/07/21 01/07/21 Range/Units 07:34 07:34 07:42 WBC (4.5-11.0) K/mm3 RBC (3.65-5.03) M/mm3 Hgb (10.1-14.3) gm/dl Hct (30.3-42.9) % MCHC (30-34) % RDW (13.2-15.2) % [place] # (Auto) (0.0-0.8) K/mm3 Seg Neutrophils % (40.0-70.0) % Seg Neutrophils # (1.8-7.7) K/mm3 D-Dimer 792.99 H (0-234) ng/mlDDU Carbon Dioxide (22-30) mmol/L BUN (7-17) mg/dL HCG, Quant 298.0 H (0-4) mIU/mL Urine WBC (Auto) (0.0-6.0) /HPF Salicylates (2.8-20.0) mg/dL Acetaminophen 5.0 L (10.0-30.0) ug/mL 01/07/21 Range/Units Unknown WBC (4.5-11.0) K/mm3 RBC (3.65-5.03) M/mm3 Hgb (10.1-14.3) gm/dl Hct (30.3-42.9) % MCHC (30-34) % RDW (13.2-15.2) % [place] # (Auto) (0.0-0.8) K/mm3 Seg Neutrophils % (40.0-70.0) % Seg Neutrophils # (1.8-7.7) K/mm3 D-Dimer (0-234) ng/mlDDU Carbon Dioxide (22-30) mmol/L BUN (7-17) mg/dL HCG, Quant (0-4) mIU/mL Urine WBC (Auto) 12.0 H (0.0-6.0) /HPF Salicylates (2.8-20.0) mg/dL Acetaminophen (10.0-30.0) ug/mL All other labs normal.
--- NOTE | 2021-01-07 12:59 | Nuclear Medicine Report ---
Perfusion Scan HISTORY: chest pain. TECHNIQUE: Patient was given 2.5 mCi of technetium MAA. COMPARISON: None FINDINGS: No photopenic defect identified. IMPRESSION: Unremarkable exam. Signer Name: Yair Johnson MD Signed: 01/07/2021 12:55 PM Workstation Name: [id number]
--- NOTE | 2021-01-07 13:03 | XRay Report ---
CHEST 1 VIEW 01/07/2021 11:57 AM INDICATION / CLINICAL INFORMATION: chest pain. COMPARISON: None available. FINDINGS: SUPPORT DEVICES: None. HEART / MEDIASTINUM: No significant abnormality. LUNGS / PLEURA: No significant pulmonary or pleural abnormality. No pneumothorax. ADDITIONAL FINDINGS: No significant additional findings. IMPRESSION: 1. No acute findings. Signer Name: German Shepard MD Signed: 01/07/2021 12:58 PM Workstation Name: [email or web address]
[2021-01-07] MEDS: SERTRALINE 25 MG TAB PO SCH (13:49)
[2021-01-07] MEDS: hydrOXYzine PAMOATE 25 MG CAP PO SCH (13:49)
[2021-01-07] MEDS ORDERED: SODIUM CHLORIDE 0.9% 1000 ML 1,000 ML IV ONE (14:49)
[2021-01-07] MEDS: NITROFURANTOIN MONOHYD/M-CRYST 100 MG CAP PO SCH (15:11)
[2021-01-07 20:49] LABS: Hematocrit 44.7 % (30.3-42.9); Hemoglobin 15.2 gm/dl (10.1-14.3); Mean Corpuscular HGB Conc 34 % (30-34); Mean Corpuscular Volume 84 fl (79-97); Platelet Count 321 K/mm3 (140-440); Red Blood Count 5.31 M/mm3 (3.65-5.03)
[2021-01-07 20:56] LABS: Red Cell Distribution Width 23.4 % (13.2-15.2)
[2021-01-07] MEDS ORDERED: traZODone 50 MG TAB PO SCH (22:00)
[2021-01-08] MEDS: NITROFURANTOIN MONOHYD/M-CRYST 100 MG CAP PO SCH (02:00)
[2021-01-08 03:33] LABS: Band Neutrophils # (Manual) 0.3 K/mm3; Total Cells Counted 100
[2021-01-08 03:49] LABS: Large Platelets Few; Macrocytosis Few; Ovalocytes Few; Platelet Estimate Consistent w Auto; Target Cells Few
[2021-01-08] MEDS: hydrOXYzine PAMOATE 25 MG CAP PO SCH ×2 (04:02→10:13)
--- NOTE | 2021-01-08 08:36 | Progress Note ---
Subjective - Reason for Consult Consult date: 01/08/21 Reason for consult: si - Chief Complaint Chief complaint: The patient was seen today. She is calm, cooperative and pleasant. The patient still verbalizes a little sadness. She says "but I told you, I'm not going to do anything to myself. I got 7 kids at home." She says "I'm not suicidal but I appreciate your concern for me." The patient is also and mentions that to me. She says "and I got this one on the way." She smiles. She denies hallucinations. I recommend the patient starting on Zoloft and seeing a therapist. She says she will seek therapist but is not interested in medication right now due to previous side effects. She says "If I start feeling suicidal again, I'll call 911 or come back." REVIEW OF SYSTEMS Constitutional: Negative for weight loss ENT: Negative for stridor Respiratory: Negative for cough or hemoptysis All other systems reviewed and are negative MENTAL STATUS EXAMINATION General Appearance and Behavior: Age appropriate, good hygiene, wearing appropriate clothes, cooperative polite with questioning. Cooperation: cooperative Psychomotor Behavior: Psychomotor agitation Mood: a little sad Affect and affective range: Congruent with stated mood Thought Process: goal directed Thought Content: optimism Speech: normal tone and pace Suicidal Ideation: Denies Homicidal Ideation: Denied hallucination: Denies Delusions: None elicited Impulse Control: Normal Insight and Judgment: Limited Memory: Limited Attention: attentive Orientation: Alert and oriented Diagnoses: Major Depressive Disorder Current Visit: Yes Status: Acute RECOMMENDATIONS d/c 1013 No meds at this time. The patient is not interested in meds at this time. Risks, benefits and alternatives of medications discussed with the patient, questions answered and consent obtained from patient. PSYCHOTHERAPY: Supportive psychotherapy provided MEDICAL: Per primary team DELIRIUM PRECAUTIONS: Please re-orient patient frequently, keep lights on during the day, and minimize benzodiazepines and opiates as these medications could worsen patient's confusion. 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 The patient understands that is suicidal thoughts arise she is to seek immediate assistance. The marine engineering teacher to further discuss safety plan and give the patient outpatient resources Please give the patient a transportation pass. FOLLOW-UP: will sign off Thank you for the consult. Please contact with any questions and/or concerns. Case staffed with Dr. Escamilla Mental Status Exam - Vital signs Last Vital Signs Temp 98.0 F 01/08/21 06:02 Pulse 79 01/08/21 06:02 Resp 17 01/08/21 06:02 BP 106/64 01/08/21 06:02 Pulse Ox 96 01/08/21 06:02
[2021-01-08 09:17] VITALS: BP 103/53
[2021-01-08] MEDS: SERTRALINE 25 MG TAB PO SCH (10:13)
--- NOTE | 2021-01-10 10:51 | Electrocardiograph Report ---
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
== END 2021-01-08 11:57 | disposition home or self-care (01) ==
LOC: ED 05:46
DX: O23.40 Unspecified infection of urinary tract in pregnancy, unspecified trimester (principal); N39.0 Urinary tract infection, site not specified; R45.851 Suicidal ideations; O99.330 Smoking (tobacco) complicating pregnancy, unspecified trimester; O99.340 Other mental disorders complicating pregnancy, unspecified trimester; Z3A.00 Weeks of gestation of pregnancy not specified; Z20.822 Contact with and (suspected) exposure to COVID-19
CPT/HCPCS: 36415; 71045; 78580; 80048; 80307; 81001; 84484; 84702; 84703; 85007; 85025; 85379; 87086; 93005; 99285; A9540; Q0177; U0003; 80320; G0480